=== PATIENT | female | born 1950 ===

== ENCOUNTER 2024-09-13 06:11 | Day surgery (SDC) | payer OTHER, MEDICARE, SELFPAY ==
[2024-09-13] VITALS (17 sets, daily range): BP systolic 128–185; BP diastolic 64–92; BMI 31.8
[2024-09-13 13:50] LABS: Glucose - Point of Care 165 mg/dl (70-99)
[2024-09-13] MEDS: TYLENOL 1000 MG PO (14:11)
[2024-09-13 17:09] LABS: Glucose - Point of Care 188 mg/dl (70-99)
--- NOTE | 2024-09-13 17:12 | W.DS.TRANS ---
Addendum entered and electronically signed by Marielena Ulrich PA-C 09/14/24 10:19:
Oxycodone d/c --Rx Tramadol
Original Note:
DC Summary - [facility]
-
Discharge Instructions:
Sleep Apnea Risk Intermediate
Discharge Diagnosis/Procedures R Reverse TSA 09/13/24
Diet Diabetic, Carb Controlled
Activity With Walker
Driving Restrictions No driving
Bathing Restrictions OK to Shower
Instructions:
Stand-Alone Forms: Total Shoulder Replacement D/C
Changes to Home Medications: Yes
Discharge Medications:
DC Medications w/original date entered in [employer]
atorvastatin 10 mg tablet 10 mg PO DAILY 09/12/24
citalopram 20 mg tablet 20 mg PO DAILY 09/12/24
fluticasone propionate 230 mcg-salmeterol 21 mcg/actuation HFA inhaler (Advair HFA) 2 puff inhalation DAILY PRN wheeze 09/12/24
gabapentin 300 mg capsule 300 mg PO DAILY 09/12/24
glipizide 10 mg tablet 10 mg PO BID 09/12/24
insulin glargine 100 unit/mL (3 mL) subcutaneous pen (Basaglar KwikPen U-100 Insulin) 30 unit SC QPM 09/12/24
levothyroxine 25 mcg tablet 25 mcg PO DAILY 09/12/24
lisinopril 20 mg tablet 20 mg PO BID 09/12/24
sitagliptin phosphate 50 mg tablet (Januvia) 50 mg PO DAILY 09/12/24
vitamin B complex 1 cap PO DAILY 09/12/24
Saccharomyces boulardii 250 mg capsule (Florastor) 250 mg PO BID #1 cap 09/13/24
acetaminophen 325 mg tablet (Tylenol) 650 mg (2 x 325 mg) PO QID #1 tab 09/13/24
aspirin 325 mg tablet 325 mg PO DAILY blood clot prevention #1 tab 09/13/24
cefadroxil 500 mg capsule 500 mg PO BID infection prevention #14 caps 09/13/24
docusate sodium 100 mg capsule (Colace) 100 mg PO BID stool softner #1 cap 09/13/24
famotidine 20 mg tablet 20 mg PO HS GI prophylaxis #30 tabs 09/13/24
magnesium hydroxide 400 mg/5 mL oral suspension (Milk of Magnesia) 30 ml PO HS PRN Constipation #1 mL 09/13/24
meloxicam 15 mg tablet 15 mg PO DAILY anti-inflammatory #14 tabs 09/13/24
ondansetron 4 mg disintegrating tablet 4 mg PO Q6H PRN n/v #20 tabs 09/13/24
oxycodone 5 mg tablet 5 mg PO Q6H PRN 1 tab moderate pain, 2 tabs severe pain #30 tabs 09/13/24
sennosides 8.6 mg tablet (Senokot) 17.2 mg (2 x 8.6 mg) PO BID laxative #2 tabs 09/13/24
tramadol 50 mg tablet 50 mg PO BID #0 tabs 09/13/24
Home Medication Changes
Saccharomyces boulardii 250 mg capsule (Florastor) 250 mg PO BID #1 cap 09/13/24
acetaminophen 325 mg tablet (Tylenol) 650 mg (2 x 325 mg) PO QID #1 tab 09/13/24
aspirin 325 mg tablet 325 mg PO DAILY blood clot prevention #1 tab 09/13/24
cefadroxil 500 mg capsule 500 mg PO BID infection prevention #14 caps 09/13/24
docusate sodium 100 mg capsule (Colace) 100 mg PO BID stool softner #1 cap 09/13/24
famotidine 20 mg tablet 20 mg PO HS GI prophylaxis #30 tabs 09/13/24
magnesium hydroxide 400 mg/5 mL oral suspension (Milk of Magnesia) 30 ml PO HS PRN Constipation #1 mL 09/13/24
meloxicam 15 mg tablet 15 mg PO DAILY anti-inflammatory #14 tabs 09/13/24
ondansetron 4 mg disintegrating tablet 4 mg PO Q6H PRN n/v #20 tabs 09/13/24
oxycodone 5 mg tablet 5 mg PO Q6H PRN 1 tab moderate pain, 2 tabs severe pain #30 tabs 09/13/24
sennosides 8.6 mg tablet (Senokot) 17.2 mg (2 x 8.6 mg) PO BID laxative #2 tabs 09/13/24
tramadol 50 mg tablet 50 mg PO BID #0 tabs 09/13/24
Pending Results: No
--- NOTE | 2024-09-13 17:49 | SUR.PHASEI ---
Pt tried on RA @1746 and pt desated to 90%. Pt placed on 4L NC and sats at 95%. Dr Escudero in to see pt and lobito ordered. Lungs clear b/l.
[2024-09-13] MEDS: DUONEB 3 ML INH (18:01)
[2024-09-13 19:49] LABS: Glucose - Point of Care 275 mg/dl (70-99)
[2024-09-13] MEDS: ZESTRIL 10 MG PO (20:37)
[2024-09-13] MEDS: JANUVIA 50 MG PO (20:37)
[2024-09-13] MEDS: ASPIRIN 325 MG PO (20:38)
[2024-09-13] MEDS: CELEXA 20 MG PO (20:38)
[2024-09-13] MEDS: TYLENOL 650 MG PO (20:38)
[2024-09-13] MEDS: COLACE 100 MG PO (20:38)
[2024-09-13] MEDS: SENOKOT 17.2 MG PO (20:39)
[2024-09-13] MEDS: LIPITOR 10 MG PO (20:39)
[2024-09-13] MEDS: NOVOLOG FLEXPEN-MODERATE RESISTANCE SC ×2 (20:51→20:52)
[2024-09-13] MEDS: TYLENOL PO ×2 (20:52)
[2024-09-13] MEDS: GLUCOTROL PO (20:53)
[2024-09-13] MEDS: BACTROBAN 2% OINTMENT 1 APPLIC NASAL (21:51)
[2024-09-13] MEDS: ULTRAM 50 MG PO (21:52)
[2024-09-13] MEDS: LANTUS 0.3 UNITS SC (21:52)
[2024-09-13] MEDS: ANCEF 5 IV (21:53)
[2024-09-13] MEDS: NEURONTIN 300 MG PO (21:53)
[2024-09-14] MEDS: TYLENOL 650 MG PO ×3 (00:25→09:02)
[2024-09-14 03:00] VITALS: BP 120/69
[2024-09-14] MEDS: ANCEF 5 IV (05:56)
[2024-09-14] MEDS: SYNTHROID 25 MCG PO (05:56)
[2024-09-14 07:20] VITALS: BP 153/81
[2024-09-14 08:50] VITALS: BP 132/54; PULSE 96
[2024-09-14] MEDS: ASPIRIN 325 MG PO (09:00)
[2024-09-14] MEDS: CELEBREX 200 MG PO (09:00)
[2024-09-14] MEDS: JANUVIA 50 MG PO (09:01)
[2024-09-14] MEDS: SENOKOT PO (09:01)
[2024-09-14] MEDS: COLACE PO (09:01)
[2024-09-14] MEDS: CELEXA 20 MG PO (09:01)
[2024-09-14] MEDS: NEURONTIN 300 MG PO (09:02)
[2024-09-14] MEDS: LIPITOR 10 MG PO (09:02)
[2024-09-14] MEDS: BACTROBAN 2% OINTMENT 1 APPLIC NASAL (09:02)
[2024-09-14] MEDS: ZESTRIL PO (09:03)
[2024-09-14] MEDS: ULTRAM PO (09:03)
[2024-09-14] MEDS: GLUCOTROL 10 MG PO (09:04)
[2024-09-14 09:27] LABS: Glucose - Point of Care 322 mg/dl (70-99)
[2024-09-14] MEDS: NOVOLOG FLEXPEN-MODERATE RESISTANCE 7 UNITS SC (10:05)
--- NOTE | 2024-09-14 10:19 | W.PN.ORTHO ---
Today's Communication / Plan
-
d/c following PT/OT eval completion in order to determine outpatient needs
Assessment
.
Distal Motor Intact: Yes
Dressing:
Clean, dry and intact.
Assessment:
Cognitive impairment with balance and gait disturbance at baseline--patient does have a walker and cane at home but uses ariza and furniture to get around--have place fall precautions and PT consult to determine d/c needs
Nausea-d/c Oxy and change to Ultram
Plan
.
Surgery / Date: R Reverse TSA 09/13/24
DVT Prophylaxis: Aspirin
Activity:
Out of bed.
PT/OT
Subjective
.
.:
Patient resting comfortably.
Vital Signs and Labs
.
Vital Signs and Labs:
Temp Pulse Resp BP Pulse Ox
97.4 F 87 16 153/81 95
09/14/24 07:20 09/14/24 07:20 09/14/24 07:20 09/14/24 07:20 09/14/24 07:20
Non-invasive Hgb result: 11.2
Physical Exam
-
HEENT: No pallor, cyanosis, or jaundice. Throat clear.
NECK: Supple. No JVD.
RESPIRATORY: Lungs clear to auscultation.
CVS: S1, S2 normal. RRR.� No murmur, rub or gallop.
ABDOMEN: Soft, non-tender. No distension. BS+/normal.
EXTREMITIES: strength equal, no calf pain with palpation
RIVET MAKER: cognitive impairment, balance and gait disturbance
[2024-09-14 10:31] VITALS: BP 132/72; BP 137/74; PULSE 94; O2SAT 94
--- NOTE | 2024-09-14 11:19 | CM ---
Addendum entered by Kristen Ferrera 09/14/24 15:16:
Spoke with Serjio from [facility]
Ref# [id number]
Requesting Rx for HH needs be sent to [facility]
Requested needed days/hours per week for OT, HH, PT,RN
F - [phone]
P - [phone]
TT sent to Terrance Ulrich
Plan - home with HH
Addendum entered by Kristen Ferrera 09/14/24 13:50:
Case is workman's comp
[facility] [phone]
Claim # - [id number]
Spoke with lucy Conde [phone]. Eligible for HH services
Spoke with Serjio [phone] - will contact [facility] regarding home care needs/local agency and return call to
Plan - HH pending Workman's Comp
Original Note:
Met with pt and her daughter at bedside
Pt/daughter report pt lives with her daughter in an apartment; 5 steps to enter, FF set-up
Ambulates without device, requires assist with ADL's, meal prep
DME - shower chair
SNF - denies past hx
HH - denies past hx
Has ride at discharge
PCP - Guicho Dickinson
Pharm - [facility]
PT/OT - recs HH - discussed with pt/daughter - agreed to HH - prefers [facility]
Referral sent in [facility]
Plan - anticipate home with [facility]
[2024-09-14 11:39] VITALS: BP 107/77
[2024-09-14 11:53] LABS: Glucose - Point of Care 277 mg/dl (70-99)
[2024-09-14] MEDS: ZOFRAN 4 MG IV (12:36)
[2024-09-14] MEDS: NOVOLOG FLEXPEN-MODERATE RESISTANCE 5 UNITS SC (12:37)
[2024-09-14] MEDS: TYLENOL PO ×2 (12:39→17:16)
--- NOTE | 2024-09-14 13:46 | PTCARENOTE ---
RN called into room, pt with redness at iv site, IV removed. Warm compress applied.
[2024-09-14 16:07] VITALS: BP 122/62
--- NOTE | 2024-09-14 16:21 | PTCARENOTE ---
Pt and daughter aware that there is no accepting VN company at this time and CM to work on VN tomorrow. Pt and daughter ok being discharged at this time and aware pt will not be seen by [facility] tomorrow. Care remains ongoing.
== END 2024-09-14 16:40 | disposition home health service (06) ==
LOC: SDS 06:11
PROVIDERS: ATTENDING PHYSICIAN Orthopaedic Surgery Hand Surgery; FAMILY PHYSICIAN Family Medicine
PROC: 0RRK00Z Replacement of Left Shoulder Joint with Reverse Ball and Socket Synthetic Substitute, Open Approach (ICD-10-PCS; 2024-09-13)
DX: S42.291A Other displaced fracture of upper end of right humerus, initial encounter for closed fracture (principal); X58.XXXA Exposure to other specified factors, initial encounter; G89.29 Other chronic pain; E03.9 Hypothyroidism, unspecified; Z79.84 Long term (current) use of oral hypoglycemic drugs; E11.9 Type 2 diabetes mellitus without complications; I10 Essential (primary) hypertension; Z86.73 Personal history of transient ischemic attack (TIA), and cerebral infarction without residual deficits; J45.909 Unspecified asthma, uncomplicated; Z79.82 Long term (current) use of aspirin; Z79.899 Other long term (current) drug therapy
CPT/HCPCS: 23472; 73020; 82962; 94640; 97162; 97166; 97535